=== PATIENT | female | born 1945 | race Caucasian/White ===

== ENCOUNTER → 2024-03-27 15:04 | Outpatient (REF) | payer OTHER, SELFPAY | LOC: RAD 15:04 | PROVIDERS: ATTENDING PHYSICIAN Physician Assistant Surgical; FAMILY PHYSICIAN Student in an Organized Health Care Education/Training Program | DX: M25.561 Pain in right knee (principal) | CPT/HCPCS: 93971 ==

== ENCOUNTER → 2025-04-04 15:38 | Outpatient (REF) | payer OTHER, SELFPAY | LOC: HWRAD 15:38 | PROVIDERS: ATTENDING PHYSICIAN Physician Assistant; FAMILY PHYSICIAN Student in an Organized Health Care Education/Training Program | DX: R05.1 Acute cough (principal); R53.83 Other fatigue | CPT/HCPCS: 71046 ==

== ENCOUNTER → 2025-06-13 13:45 | Outpatient (REF) | payer OTHER, SELFPAY | LOC: RAD 13:45 | PROVIDERS: ATTENDING PHYSICIAN Student in an Organized Health Care Education/Training Program; FAMILY PHYSICIAN Student in an Organized Health Care Education/Training Program | DX: M79.661 Pain in right lower leg (principal) | CPT/HCPCS: 93971 ==

== ENCOUNTER → 2025-08-26 14:44 | Outpatient (REF) | payer OTHER, SELFPAY | LOC: RAD 14:44 | PROVIDERS: ATTENDING PHYSICIAN Student in an Organized Health Care Education/Training Program | DX: I82.409 Acute embolism and thrombosis of unspecified deep veins of unspecified lower extremity (principal) | CPT/HCPCS: 93971 ==

== ENCOUNTER 2025-08-28 16:15 | Emergency (ER) | payer OTHER, SELFPAY ==
[2025-08-28 16:23] VITALS: BP 139/73
[2025-08-28] MEDS: NORCO 5/325 1 TABLET PO (19:05)
--- NOTE | 2025-08-28 19:22 | ED.MUSCINJ ---
HPI-Injury
General
Chief Complaint: Fall
Source: patient
Exam Limitations: none
Time Seen by Provider: 08/28/25 18:02
History of Present Illness-Injury
Initial Injury comments:
80-year-old female presents complaining of right knee pain. She has been seen recently by orthopedics and was diagnosed with a meniscal tear. She had been doing okay until today she went up a couple steps and felt a stabbing pain in the knee.
Since then she has had pain with bearing weight. No fevers. She notes swelling to the knee. No other new injury. She is anticoagulated currently for history of DVT in the right leg. Of note she had an ultrasound earlier this week and the DVT
was resolved.
Past History
Past History
ED Past Medical History: Hypothyroidism, Psychiatric (Dpression) and Other (Migraine headaches, rare episodes of palpitations/tachycardia, anemia, Renal calculus, Anemia)
ED Past Surgical History: Cholecystectomy, Orthopedic (Toe surgery) and Other (cataract surgery, Lump removed from back, Eyelid surgery)
Social History
Tobacco: Non-smoker
Alcohol: Daily (Wine 1 glasses)
Personal:
Living: with family
Employment: Retired
Family History
Family History: Other (Noncontributory)
Phy Exam
Physical Exam
Physical Exam:
General: Well-appearing female no acute respiratory distress
HEENT normal cephalic atraumatic
Musculoskeletal exam: Right knee with mild effusion tender over the anterior joint and slightly over the posterior joint line. She has full extension flexion to about 90 degrees knee stable to ligamentous exam skin is warm no rash
Injury Course
Orders/Labs/Results
Orders:
Orders
08/28/25 18:26
Knee Immobilizer Right-Treatme ONCE
Hydrocodone 5/APAP 325 [Edwall 5/325] 1 tablet PO NOW STA
MDM/Problems Addressed
Differential Diagnosis Includes:
Right knee pain no meniscal tear no new injury or trauma. I suspect extension of the known underlying degenerative change and meniscal injury. Provided knee immobilizer and pain medicine recommended follow-up with orthopedics. No indication for
any further intervention here. Do not suspect septic arthritis.
*Pulse Oximetry
SaO2: 98
Oxygen Mode of Delivery: Room air
Patient hypoxic: no
*Critical Care Note
Total Time (30-74mins, 75-104mins- exclusive of procedures): Not Applicable
ED Attending Note
-
Portions of this chart may have been created with voice recognition software.� Occasional wrong word or��sound alike� substitutions may have occurred due to the inherent limitations of voice recognition software.
Discharge Plan
Departure
Patient Disposition: Home (Routine Discharge)
Date of Disposition: 08/28/25
Time of Disposition: 19:23
Patient with high blood pressure during this ER visit?: No
Discharge Problem:
Acute knee pain
Instructions: Muscle, joint, and bone pain (DC)
Prescriptions:
New
hydrocodone-acetaminophen 5-325 mg tablet
1 tab PO TID PRN (Reason: Pain) Qty: 10 0RF
No Action
sumatriptan succinate [Imitrex] 50 MG tablet
50 mg PO DAILYPRN PRN (Reason: migraines)
levothyroxine [Levoxyl] 88 MCG tablet
88 mcg PO DAILY
atorvastatin 40 mg Tablet
40 mg PO DAILY
betamethasone valerate 0.1 % ointment
1 applic TOPICAL WEEKLY PRN (Reason: to vulva)
aspirin 81 mg Tablet,Delayed Release (Dr/Ec)
81 mg PO DAILY
ascorbate calcium (vitamin C) 500 mg Tablet
2 g PO DAILY
propranolol 20 mg tablet
20 mg PO Q4HPRN PRN (Reason: palpitations)
coQ10 (ubiquinol) [CoQmax Ubiquinol] 100 mg Capsule
100 mg PO DAILY
desvenlafaxine succinate 25 mg tablet extended release 24 hr
25 mg PO DAILY
Cholecalciferol High Dose
1 tab PO DAILY
Heal And Soothe Supplement
2 tab PO DAILY
acetaminophen [acetaminophen] 325 mg tablet
650 mg PO Q6HPRN PRN (Reason: mild pain) Qty: 14 0RF
ibuprofen 200 mg tablet
600 mg PO Q6HPRN PRN (Reason: moderate pain) Qty: 14 0RF
levofloxacin 500 mg tablet
500 mg PO DAILY 9 Days Qty: 9 0RF
metronidazole 500 mg tablet
500 mg PO TID Qty: 29 0RF
Referrals:
Sylvain Guajardo, [facility] [Family Provider, Surgical]
Activity Restrictions/Additional Instructions:
Use brace for support and ambulating. Follow-up with orthopedics. Return if worse otherwise
Interventions
Interventions:
*Risk Screen - Suicide Last Done: 08/28/25 16:23
*General Assessment Last Done: 08/28/25 17:48
*Neglect/Abuse Screening Last Done: 08/28/25 16:23
*ED- Fall Risk Assessment Last Done: 08/28/25 16:23
*ED COVID-19 Vaccine History Last Done: 08/28/25 17:48
*ED Influenza Vaccine History Last Done: 08/28/25 17:48
ED-Musculoskeletal Assessment Last Done: 08/28/25 17:48
ED- Neurological Assessment Last Done: 08/28/25 17:48
ED-Skin Assessment Last Done: 08/28/25 17:48
Discharge Date and Time
Print Language: OCCITAN
[2025-08-28 19:45] VITALS: BP 140/69
== END 2025-08-28 19:58 | disposition home or self-care (01) ==
LOC: EMR 16:15
PROVIDERS: EMERGENCY PHYSICIAN Emergency Medicine; FAMILY PHYSICIAN Physician Assistant Surgical
DX: M25.561 Pain in right knee (principal); E03.9 Hypothyroidism, unspecified; G43.909 Migraine, unspecified, not intractable, without status migrainosus; F32.A Depression, unspecified; Z79.01 Long term (current) use of anticoagulants; Z79.82 Long term (current) use of aspirin; Z86.718 Personal history of other venous thrombosis and embolism
CPT/HCPCS: 99283; 29505